=== PATIENT | male | born 1995 | race Caucasian/White ===

== ENCOUNTER 2017-04-19 20:56 | Emergency (ER) | payer SELFPAY ==
[~2017-04-19] VITALS: Ht 182.9 cm; Wt 90.7 kg
[2017-04-19 21:04] VITALS: BP 118/69
--- NOTE | 2017-04-19 22:27 | NUR ---
PT TAKEN TO BED 5
--- NOTE | 2017-04-19 22:30 | NUR ---
21 Y/O M W/C/O rt index finger with pain, swelling d/c, seen in [facility] with prescription last monday night.FINGER APPEARS SWOLLEN, WITH SEROUSANGUINEOUS DISCHARGE. PT DENIES ANY FEVER OR CHILLS. ER MD MADE AWARE.
--- NOTE | 2017-04-19 23:04 | NUR ---
Dr. Trevino evaluating patient at bedside.
[2017-04-19] MEDS ORDERED: LIDOCAINE 1% 500 MG/50 ML VIAL INJ ONE (23:10)
[2017-04-19 23:32] VITALS: BP 129/80
--- NOTE | 2017-04-19 23:32 | NUR ---
Patient discharged with v/s stable. Written and verbal after care instructions given and explained. Patient alert, oriented and verbalized understanding of instructions. Ambulatory with steady gait. All questions addressed prior to discharge. ID band removed. Patient advised to follow up with PMD IN 2 DAYS OR HERE FOR WOUND RECHECK. Rx of NORCO given. Patient educated on indication of medication including possible reaction and side effects. Opportunity to ask questions provided and answered.
== END 2017-04-19 23:32 | disposition home or self-care (01) ==
LOC: MED 20:56
DX: L03.011 Cellulitis of right finger (principal)
CPT/HCPCS: 10060; 99283; J2001